=== PATIENT | female | born 1995 | race Caucasian/White ===

== ENCOUNTER → 2025-03-19 | Outpatient (CLI) | payer OTHER ==
[~2025-03-19] MED LIST: AMOX500 PO; Amoxicillin500 MG PO; BCP'S; BENZ100A PO; BIRTH CONTROL; Bactrim Ds Tab1 EACH PO; HYDROCODONE-AC1 EAC7 PO; IBUP800 PO; LIDOCAINE1 EACH TOP; MULVITMINE PO; NAPR500 PO; OXYACE5T PO; PROACE100 PO; RXPROACE PO
[2025-03-23 07:23] LABS: 6-ACETYLMORPHINE, URN, QUANT <10 ng/mL; CODEINE, URN, QUANT <20 ng/mL; HYDROCODONE, URN, QUANT >4000 ng/mL; HYDROMORPHONE, URN, QUANT 112 ng/mL; MORPHINE, URN, QUANT <20 ng/mL; NORHYDROCODONE, URN, QUANT >4000 ng/mL; NOROXYCODONE, URN, QUANT <20 ng/mL; NOROXYMORPHONE, URN, QUANT <20 ng/mL; OXYCODONE, URN, QUANT <20 ng/mL; OXYMORPHONE, URN, QUANT <20 ng/mL
== END | disposition home or self-care (01) ==
LOC: LAB SHORT 18:44 → LAB 18:44
PROVIDERS: Family Medicine
DX: Z51.81 Encounter for therapeutic drug level monitoring (principal); Z79.899 Other long term (current) drug therapy
CPT/HCPCS: G0480